=== PATIENT | female | born 1990 | race Caucasian/White ===

== ENCOUNTER 2021-01-04 23:36 | Emergency (ER) | payer OTHER ==
[2021-01-05 00:05] VITALS: BP 170/95; PULSE 90; TEMP 98.6; BMI 25.0
[2021-01-05 01:47] LABS: BASO % 0.8 % (0-2.0); EOS % 2.1 % (0-4.5); HEMATOCRIT 39.4 % (32.4-45.2); HEMOGLOBIN 13.1 GM/dL (10.7-15.3); LYMPH % 36.1 % (8-40); MCH 29.3 pg (25.7-33.7); MCHC 33.2 g/dl (32.0-36.0); MEAN CELL VOLUME 88.3 fl (80-96); MEAN PLT VOLUME 10.9 fl (7.5-11.1); MONO % 10.3 % (3.8-10.2); NEUT % 50.7 % (42.8-82.8); PLATELET COUNT 264 K/MM3 (134-434); RBC 4.47 M/mm3 (3.60-5.2); RDW 12.9 % (11.6-15.6); WHITE BLOOD COUNT 9.1 K/mm3 (4.0-10.0)
[2021-01-05 01:57] LABS: CHLORIDE 107 mmol/L (98-107); POTASSIUM 3.3 mmol/L (3.5-5.1); SODIUM 140 mmol/L (136-145)
[2021-01-05 01:59] LABS: ANION GAP 6 MMOL/L (8-16); CALCIUM 8.9 mg/dL (8.5-10.1); CO2 28 mmol/L (21-32); GLUCOSE,RANDOM 122 mg/dL (74-106)
[2021-01-05 02:02] LABS: CREATININE 0.8 mg/dL (0.55-1.3); SGOT/AST 14 U/L (15-37); SGPT/ALT 36 U/L (13-61)
[2021-01-05 02:04] LABS: ALK PHOS 99 U/L (45-117); BILIRUBIN,TOTAL 0.3 mg/dL (0.2-1); TOT PROT 6.9 g/dl (6.4-8.2)
== END 2021-01-05 02:53 | disposition home or self-care (01) ==
LOC: JER 23:36
DX: R00.2 Palpitations (principal)
CPT/HCPCS: 36415; 71046-TC-FY; 80053; 82550; 82553; 84484; 84703; 85025; 93005; 93010; 99285-25